=== PATIENT | female | born 1950 | race Caucasian/White ===

== ENCOUNTER 2021-12-15 07:42 | Inpatient (IN) | payer OTHER ==
[~2021-12-15] VITALS: Ht 142.2 cm; Wt 55.3 kg
[~2021-12-15 07:42] MED LIST: LOSA-69 OR; MES400T OR; OMEP20TA44 OR; PREDNISONE; SERT50TA19 OR; SIMV-8 OR; [UNRECOGNIZED DRUG - OTHER]
[2021-12-15] MEDS ORDERED: dilTIAZem 25 MG/5 ML VIAL IV ONE (08:15)
[2021-12-15] MEDS ORDERED: SODIUM CHLORIDE 0.9% 1,000 ML IV ONE (08:15)
[2021-12-15] MEDS ORDERED: SODIUM CHLORIDE 0.9% 1,000 ML IVB ONE (08:15)
[2021-12-15 09:24] LABS: Basophils # (auto) 0 10 ^3/uL (0-0.2); Basophils % (auto) 0.6 % (0.0-2.0); Eosinophils # (auto) 0.2 10 ^3/uL (0-0.8); Hematocrit 40.6 % (36.0-46.0); Hemoglobin 14.3 g/dL (12.2-16.2); Lymphocytes # (auto) 1.3 10 ^3/uL (0.4-5.4); Lymphocytes % (auto) 16.3 % (10.0-50.0); Mean Corpuscular Hgb Conc. 35.2 g/dL (32.0-36.0); Monocytes # (auto) 0.4 10 ^3/uL (0-1.3); Monocytes % (auto) 4.7 % (0.0-12.0); Neutrophils % (auto) 76.4 % (37.0-80.0); Nucleated Red Blood Cells % 0.1 %; Red Blood Cells 4.46 10^6/uL (4.0-5.20); Red Cell Distribution Width 13.4 % (11.8-14.3); White Blood Cell 7.9 10^3/uL (4.4-10.8)
[2021-12-15 09:40] LABS: INR 1.04 (0.9-1.15); Partial Thromboplastin Time 28.7 sec (23.6-33.0)
[2021-12-15 09:43] LABS: Albumin 3.4 g/dL (3.4-5.0); Calcium 9.6 mg/dL (8.5-10.1); Potassium 4.4 mmol/L (3.5-5.1)
[2021-12-15 09:46] LABS: BUN/Creatinine Ratio 18.9
[2021-12-15 09:51] LABS: Bilirubin, Total 0.6 mg/dL (0.2-1.0); Total Protein 6.5 g/dL (6.4-8.2)
[2021-12-15] MEDS ORDERED: AMIODARONE HCL 150 MG in D5W 5% 100 ML IV ONE (10:15)
[2021-12-15] MEDS ORDERED: ENOXAPARIN SOD 60 MG/0.6 ML SYRINGE SC ONE ×2 (10:15→12:00)
[2021-12-15] MEDS: AMIODARONE 450mg/250ml AE 250 ML IV SCH ×2 (11:10→11:15)
[2021-12-15] MEDS ORDERED: LORazepam 0.5 MG TAB PO PRN (11:30)
[2021-12-15] MEDS ORDERED: ALUM & MAG HYDROX-SIMETH LIQ(MAALOX) 30 ML PO ONE (11:30)
[2021-12-15] MEDS ORDERED: MORPHINE SULFATE INJECTION 2 MG/ML SYRG IV PRN (11:30)
[2021-12-15] MEDS ORDERED: NITROGLYCERIN 2% OINT 1GM PKG TD PRN (11:30)
[2021-12-15] MEDS ORDERED: MORPHINE SULFATE 4 MG/ML SYR/VIAL IV PRN (11:30)
[2021-12-15] MEDS ORDERED: ZOLPIDEM TARTRATE 5 MG TAB PO PRN (11:30)
[2021-12-15] MEDS ORDERED: ACETAMINOPHEN 325 MG TAB PO PRN (11:30)
[2021-12-15] MEDS ORDERED: NITROGLYCERIN 0.4 MG SL TAB SL PRN ×2 (11:30)
[2021-12-15] MEDS ORDERED: DIGOXIN (250MCG/ML) 2 ML AMPULE IV ONE (12:00)
[2021-12-15] MEDS: AMIODARONE HCL 200 MG TAB PO SCH ×2 (12:00→22:11)
[2021-12-15] MEDS ORDERED: DIGOXIN 0.25 MG TAB PO ONE (12:00)
[2021-12-15] MEDS ORDERED: dilTIAZem 120MG ER CAP PO SCH (13:00)
[2021-12-15] MEDS ORDERED: SODIUM CHLORIDE 0.9% 500 ML IV ONE (14:15)
[2021-12-15] MEDS: SODIUM CHLOR 0.9% PF (SALINE LOCK) 10ML VIAL/SYR IV SCH ×2 (14:56→22:10)
[2021-12-15] MEDS ORDERED: AMIODARONE 450mg/250ml AE 250 ML IV SCH (16:45)
[2021-12-15 17:52] VITALS: BP 122/55
[2021-12-15 21:07] VITALS: BP 139/64
[2021-12-15] MEDS ORDERED: HEPARIN SODIUM (PORCINE) 5000 UNITS/ML 1ML VIAL SC SCH (22:00)
[2021-12-15] MEDS: METOPROLOL TARTRATE 25 MG TAB PO SCH (22:11)
[2021-12-15] MEDS: ENOXAPARIN SOD 60 MG/0.6 ML SYRINGE SC SCH (22:11)
[2021-12-15] MEDS: ATORVASTATIN 20 MG TAB PO SCH (22:11)
[2021-12-16 05:00] VITALS: BP 116/58
[2021-12-16 05:17] LABS: Basophils # (auto) 0 10 ^3/uL (0-0.2); Basophils % (auto) 0.3 % (0.0-2.0); Eosinophils # (auto) 0.1 10 ^3/uL (0-0.8); Eosinophils % (auto) 1.2 % (0.0-7.0); Hematocrit 33.7 % (36.0-46.0); Hemoglobin 12.1 g/dL (12.2-16.2); Lymphocytes # (auto) 1.8 10 ^3/uL (0.4-5.4); Lymphocytes % (auto) 20.7 % (10.0-50.0); Mean Corpuscular Volume 91.8 fL (80.0-100.0); Monocytes # (auto) 0.4 10 ^3/uL (0-1.3); Monocytes % (auto) 4.6 % (0.0-12.0); Neutrophils # (auto) 6.3 10 ^3/uL (1.6-8.6); Neutrophils % (auto) 73.2 % (37.0-80.0); Red Blood Cells 3.67 10^6/uL (4.0-5.20); Red Cell Distribution Width 13.4 % (11.8-14.3); White Blood Cell 8.5 10^3/uL (4.4-10.8)
[2021-12-16 05:35] LABS: Calcium 8.7 mg/dL (8.5-10.1); Magnesium 2.3 mg/dL (1.6-2.6); Potassium 4.1 mmol/L (3.5-5.1)
[2021-12-16 05:37] LABS: BUN/Creatinine Ratio 17.9
[2021-12-16 05:49] LABS: INR 1.07 (0.9-1.15); Partial Thromboplastin Time 34.7 sec (23.6-33.0)
[2021-12-16] MEDS: SODIUM CHLOR 0.9% PF (SALINE LOCK) 10ML VIAL/SYR IV SCH ×3 (06:10→21:31)
[2021-12-16 09:00] VITALS: BP 118/47
[2021-12-16] MEDS: METOPROLOL TARTRATE 25 MG TAB PO SCH ×2 (09:44→21:33)
[2021-12-16] MEDS: AMIODARONE HCL 200 MG TAB PO SCH ×2 (09:46→21:32)
[2021-12-16] MEDS: DOCUSATE SOD 100 MG CAP PO SCH (09:47)
[2021-12-16] MEDS: ENOXAPARIN SOD 60 MG/0.6 ML SYRINGE SC SCH ×3 (09:48→21:39)
[2021-12-16] MEDS ORDERED: FUROSEMIDE 20 MG/2 ML VIAL IV SCH (10:00)
[2021-12-16] MEDS ORDERED: DIGOXIN 0.125 MG TAB PO SCH (10:00)
[2021-12-16] MEDS ORDERED: SERTRALINE HCL 50 MG TAB PO ONE (10:30)
[2021-12-16 10:57] LABS: Cholesterol 112 mg/dL (< 200)
[2021-12-16 11:01] LABS: HDL Cholesterol 49 mg/dL (40-59); Triglycerides 154 mg/dL (< 150)
[2021-12-16 17:00] VITALS: BP 133/51
[2021-12-16] MEDS: ATORVASTATIN 20 MG TAB PO SCH (21:32)
[2021-12-16] MEDS: MESALAMINE 400mg Delayed Release Cap PO SCH (21:32)
[2021-12-16 22:00] VITALS: BP 124/66
[2021-12-17] VITALS (10 sets, daily range): BP systolic 113–160; BP diastolic 56–84
[2021-12-17 03:53] LABS: Urine Bacteria NONE SEEN /hpf (None Seen); Urine Blood Negative /uL (Negative); Urine Mucus FEW (None Seen); Urine Specific Gravity 1.016 (1.001-1.035); Urine WBC 2 /hpf (0 - 5)
[2021-12-17 05:34] LABS: INR 1.05 (0.9-1.15); Partial Thromboplastin Time 27.7 sec (23.6-33.0)
[2021-12-17 05:36] LABS: Calcium 9.4 mg/dL (8.5-10.1); Potassium 3.6 mmol/L (3.5-5.1)
[2021-12-17 05:39] LABS: BUN/Creatinine Ratio 15.8
[2021-12-17] MEDS: SODIUM CHLOR 0.9% PF (SALINE LOCK) 10ML VIAL/SYR IV SCH ×3 (06:18→23:23)
[2021-12-17 06:33] LABS: Hematocrit 37.1 % (36.0-46.0); Hemoglobin 13.1 g/dL (12.2-16.2); Mean Corpuscular Hemoglobin 32.1 pg (28.0-32.0); Mean Corpuscular Hgb Conc. 35.4 g/dL (32.0-36.0); Mean Corpuscular Volume 90.7 fL (80.0-100.0); Red Blood Cells 4.09 10^6/uL (4.0-5.20); Red Cell Distribution Width 13.4 % (11.8-14.3); White Blood Cell 6.9 10^3/uL (4.4-10.8)
[2021-12-17 06:41] LABS: Band Neutrophils % (manual) 0; Basophils % (manual) 0 (0.0-2.0); Blast Cells 0; Metamyelocytes % 0; Myelocytes % 0; Promyelocytes % 0
[2021-12-17] MEDS: SERTRALINE HCL 50 MG TAB PO SCH (09:46)
[2021-12-17] MEDS: DOCUSATE SOD 100 MG CAP PO SCH (09:46)
[2021-12-17] MEDS: MESALAMINE 400mg Delayed Release Cap PO SCH ×2 (10:00→22:28)
[2021-12-17] MEDS ORDERED: SERT50TA19 OR (10:01)
[2021-12-17] MEDS ORDERED: METH2.5T PO (10:01)
[2021-12-17] MEDS ORDERED: ANGIOMAX 250 MG VIAL IV ONE (11:33)
[2021-12-17] MEDS ORDERED: VERAPAMIL 2.5MG/ML INJ 2ML VIAL IV ONE (11:34)
[2021-12-17] MEDS ORDERED: HEPARIN SODIUM (PORCINE) 5000 UNITS/ML 1ML VIAL ONE (11:34)
[2021-12-17] MEDS ORDERED: fentaNYL CITRATE 100 MCG/2 ML VL ONE (11:34)
[2021-12-17] MEDS ORDERED: SODIUM CHL 0.9% 0 ML ONE (11:35)
[2021-12-17] MEDS ORDERED: MIDAZOLAM HCL 2MG/2ML 2ml VIAL (1mg/ml) ONE (11:35)
[2021-12-17] MEDS ORDERED: LIDOCAINE 2%HCL (LOCAL ANESTH.) INJ 20ML MDV ONE (11:35)
[2021-12-17] MEDS ORDERED: IODIXANOL 320MG/ML 100ML BTL IV ONE (11:35)
[2021-12-17 13:06] LABS: Eosinophils % (manual) 1 (0-7); Lymphocytes % (manual) 29 (10.0-50.0); Monocytes % (manual) 2 (0-12); Reactive Lymphocytes 3
[2021-12-17] MEDS: METOPROLOL TARTRATE 25 MG TAB PO SCH ×3 (14:35→23:20)
[2021-12-17] MEDS: ATORVASTATIN 20 MG TAB PO SCH (22:32)
[2021-12-18 05:00] VITALS: BP 140/63
[2021-12-18] MEDS: SODIUM CHLOR 0.9% PF (SALINE LOCK) 10ML VIAL/SYR IV SCH (06:58)
[2021-12-18 08:15] VITALS: BP 123/68
[2021-12-18 09:00] VITALS: BP 123/68
[2021-12-18] MEDS ORDERED: POTASSIUM CHL 20 Meq TABLET PO ONE (09:15)
[2021-12-18] MEDS ORDERED: APIX5TAB PO (09:33)
[2021-12-18] MEDS ORDERED: AMIO200T33 PO (09:33)
[2021-12-18] MEDS ORDERED: AMIODARONE HCL 200 MG TAB PO SCH (10:00)
[2021-12-18] MEDS ORDERED: APIXABAN 5 MG TAB PO SCH (10:00)
[2021-12-18] MEDS: DOCUSATE SOD 100 MG CAP PO SCH (10:18)
[2021-12-18] MEDS: MESALAMINE 400mg Delayed Release Cap PO SCH (10:18)
[2021-12-18] MEDS: SERTRALINE HCL 50 MG TAB PO SCH (10:28)
[2021-12-18 11:23] VITALS: BP 173/74
[2021-12-18 13:00] VITALS: BP 173/74
[2021-12-19 19:21] LABS: LDL Cholesterol 48 mg/dL (< 100)
== END 2021-12-18 13:35 | disposition home or self-care (01) | DRG 281 ==
LOC: EDBD 07:42 → ER 07:42 → TELE 11:26 → TELE-CENTR 17:11
PROVIDERS: ADMIT Registered Nurse; ATTEND Family Medicine
PROC: 4A023N7 Measurement of Cardiac Sampling and Pressure, Left Heart, Percutaneous Approach (ICD-10-PCS; principal; 2021-12-17)
PROC: B211YZZ Fluoroscopy of Multiple Coronary Arteries using Other Contrast (ICD-10-PCS; 2021-12-17)
PROC: B215YZZ Fluoroscopy of Left Heart using Other Contrast (ICD-10-PCS; 2021-12-17)
DX: I21.4 Non-ST elevation (NSTEMI) myocardial infarction (principal); I48.92 Unspecified atrial flutter; E44.1 Mild protein-calorie malnutrition; I48.91 Unspecified atrial fibrillation; N18.2 Chronic kidney disease, stage 2 (mild); F12.90 Cannabis use, unspecified, uncomplicated; K21.9 Gastro-esophageal reflux disease without esophagitis; F41.8 Other specified anxiety disorders; M19.90 Unspecified osteoarthritis, unspecified site; Z20.822 Contact with and (suspected) exposure to COVID-19; E78.00 Pure hypercholesterolemia, unspecified; E78.5 Hyperlipidemia, unspecified; I12.9 Hypertensive chronic kidney disease with stage 1 through stage 4 chronic kidney disease, or unspecified chronic kidney disease; D69.6 Thrombocytopenia, unspecified; E66.9 Obesity, unspecified; R00.1 Bradycardia, unspecified; Z91.012 Allergy to eggs; Z68.27 Body mass index [BMI] 27.0-27.9, adult
CPT/HCPCS: 36415; 71045; 71046; 80048; 80053; 80061; 80162; 81001; 83735; 83880; 84443; 84484; 85007; 85025; 85027; 85379; 85610; 85730; 86850; 86900; 86901; 87426; 93005; 93306; 93458; 96365; 96366; 96372; 96375; 99152; 99291; G0378; J2250; J7060; Q9967

== ENCOUNTER 2022-02-09 11:20 | Emergency (ER) | payer OTHER ==
[~2022-02-09] VITALS: Ht 147.3 cm; Wt 51.7 kg
[~2022-02-09 11:20] MED LIST changes: +AMIO200T33 PO; +APIX5TAB PO; -MES400T OR; +METH2.5T PO; -PREDNISONE; -[UNRECOGNIZED DRUG - OTHER]
[2022-02-09 13:36] LABS: Basophils # (auto) 0.1 10 ^3/uL (0-0.2); Basophils % (auto) 1.1 % (0.0-2.0); Eosinophils # (auto) 0.1 10 ^3/uL (0-0.8); Hematocrit 32.5 % (36.0-46.0); Hemoglobin 11.5 g/dL (12.2-16.2); Lymphocytes # (auto) 1.4 10 ^3/uL (0.4-5.4); Lymphocytes % (auto) 20.1 % (10.0-50.0); Mean Corpuscular Hemoglobin 31.5 pg (28.0-32.0); Mean Corpuscular Hgb Conc. 35.5 g/dL (32.0-36.0); Mean Corpuscular Volume 88.8 fL (80.0-100.0); Monocytes # (auto) 0.3 10 ^3/uL (0-1.3); Monocytes % (auto) 4.9 % (0.0-12.0); Neutrophils # (auto) 4.9 10 ^3/uL (1.6-8.6); Neutrophils % (auto) 71.9 % (37.0-80.0); Nucleated Red Blood Cells % 0.2 %; Red Blood Cells 3.66 10^6/uL (4.0-5.20); Red Cell Distribution Width 14.4 % (11.8-14.3); White Blood Cell 6.9 10^3/uL (4.4-10.8)
[2022-02-09 13:49] LABS: Albumin 2.9 g/dL (3.4-5.0); BUN/Creatinine Ratio 11.8; Calcium 10.1 mg/dL (8.5-10.1); Potassium 4.5 mmol/L (3.5-5.1)
[2022-02-09 13:52] LABS: Bilirubin, Total 0.5 mg/dL (0.2-1.0)
[2022-02-09 16:29] LABS: Urine Bacteria FEW /hpf (None Seen); Urine Blood Negative /uL (Negative); Urine Specific Gravity 1.009 (1.001-1.035); Urine WBC 1 /hpf (0 - 5)
[2022-02-09 19:23] VITALS: BP 147/63
== END 2022-02-09 19:39 | disposition short-term general hospital (02) ==
LOC: ER 11:20
DX: R53.1 Weakness (principal); R06.02 Shortness of breath; R00.1 Bradycardia, unspecified; K21.9 Gastro-esophageal reflux disease without esophagitis; E78.5 Hyperlipidemia, unspecified; I10 Essential (primary) hypertension; Z98.51 Tubal ligation status; Z20.822 Contact with and (suspected) exposure to COVID-19
CPT/HCPCS: 36415; 71046; 80053; 81001; 83735; 83880; 84484; 85025; 93005